=== PATIENT | female | born 1975 | race Caucasian/White ===

== ENCOUNTER → 2017-05-11 | Outpatient (CLI) | payer BC ==
--- NOTE | 2017-05-11 11:56 | RAD ---
Examination: Right knee, four views History: Jumping injury Findings: There is no evidence for trauma, arthritis, bone destruction or synovial effusion. Articula r surfaces are smooth and well defined. The patella is not displaced. Impression: No significant or acute abnormality demonstrated. Reported By:
== END ==
LOC: RAD 11:12
PROVIDERS: ATTEND Physician Assistant
DX: M25.561 Pain in right knee (principal)
CPT/HCPCS: 73564